=== PATIENT | male | born 1970 | race Caucasian/White ===

== ENCOUNTER 2016-08-15 21:51 | Emergency (ER) | payer OTHER ==
[~2016-08-15 21:51] MED LIST: ADVIL MIGRAINE200 MG PO; ALLERGY PLUS-S1 EACH PO; BACTRIM DS TABL1 TAB PO; BACTROBAN22 GM TP; CEPHALEXIN500 MG PO; CLEOCIN HCL300 M1 PO; FLEXERIL10 MG PO; HYDROCHLOROTHIA25 M1 PO; IBUPROFEN600 MG PO; LEVAQUIN750 MG PO; LISINOPRIL10 M1 PO; MOTRIN800 MG PO; NORCO 5/325 TAB1 TAB PO; TRAMADOL HCL50 MG PO; TYLENOL650 MG PO
[2016-08-16] MEDS ORDERED: MIGRAINE PILL (02:15)
[2016-08-16] MEDS ORDERED: PROPRANOLOL HCL10 M1 PO (02:15)
[2016-08-16] MEDS ORDERED: COZAAR50 M1 PO (02:16)
[2016-08-16] MEDS ORDERED: IBUPROFEN600 M1 PO (02:16)
== END 2016-08-16 03:44 ==
LOC: EDMED 21:51
DX: R22.31 Localized swelling, mass and lump, right upper limb (principal); I10 Essential (primary) hypertension; F41.9 Anxiety disorder, unspecified; Z79.899 Other long term (current) drug therapy